=== PATIENT | male | born 1950 | race Caucasian/White ===

== ENCOUNTER → 2019-07-29 | Outpatient (CLI) | payer MEDICARE ==
[~2019-07-29] MED LIST: REGADENOSON 0.4 MG/5 ML DISP.SYRIN. IV ONE
--- NOTE | 2019-07-30 12:37 | PCVCIMAG ---
APPROVED REPORT Study performed: 07/29/2019 08:12:43 EXAM: Comprehensive 2D, Doppler, and color-flow Echocardiogram Patient Location: Echo lab Status: routine BSA: 1.83 HR: 67 bpmBP: 124/82 mmHg Rhythm: NSR Other Information Study Quality: Adequate Risk Factors: Cardiac Risk Factors: Hyperlipidemia Indications CAD elevated calcium score 2D Dimensions IVSd: 15.17 (7-11mm) LVDd: 38.64 mm PWd: 15.00 (7-11mm)Ascending Ao: 35.39 (22-36mm) LVDs: 30.91 (25-40mm) Left Atrium: 34.07 (27-40mm) Aortic Root: 33.23 mm LV Single Plane 4CH: 61.83 % LV Single Plane 2CH: 68.09 % Biplane EF: 65.0 % Volumes Left Atrial Volume (Systole) Single Plane 4CH: 34.62 mLSingle Plane 2CH: 58.86 mL LA ESV Index: 25.00 mL/m2 Aortic Valve AoV Peak Waldo.: 1.67 m/s AO Peak Gr.: 11.22 mmHgLVOT Max P.27 mmHg LVOT Max V: 1.03 m/s Mitral Valve E/A Ratio: 0.6 MV Decel. Time: 299.55 ms MV E Max Waldo.: 0.62 m/s MV A Waldo.: 0.99 m/s IVRT: 138.41 ms Pulmonary Valve PV Peak Waldo.: 1.14 m/sPV Peak Gr.: 5.23 mmHg Pulmonary Vein P Vein S: 0.40 m/sP Vein A: 0.52 m/s P Vein D: 0.59 m/sP Vein A Dur.: 128.0 msec P Vein S/D Ratio: 0.68 Tricuspid Valve TR Peak Waldo.: 3.08 m/s TR Peak Gr.: 37.91 mmHg TV Vmax: 0.53 m/s Left Ventricle The left ventricle is normal size. There is normal LV segmental wall motion. Moderate concentric left ventricular hypertrophy. Left ventricular systolic function is normal. The left ventricular ejection fraction is within the normal range. LVEF is 60%. Grade I - abnormal relaxation pattern. Right Ventricle The right ventricle is normal size. The right ventricular systolic function is normal. Atria The left atrium size is normal. The right atrium size is normal. Aortic Valve The aortic valve is normal in structure. No aortic regurgitation is present. There is no aortic valvular stenosis. Mitral Valve The mitral valve is normal in structure. Mild mitral regurgitation. No evidence of mitral valve stenosis. Tricuspid Valve The tricuspid valve is normal in structure. Mild tricuspid regurgitation with PAP of 45 mmHg. Pulmonic Valve The pulmonary valve is normal in structure. There is mild pulmonic valvular regurgitation. Great Vessels The aortic root is normal in size. IVC is normal in size and collapses >50% with inspiration. Pericardium There is no pericardial effusion. There is no pleural effusion. <Conclusion> The left ventricle is normal size. LVEF is 60%. The aortic valve is normal in structure. The mitral valve is normal in structure. Mild mitral regurgitation. The tricuspid valve is normal in structure. Mild tricuspid regurgitation with PAP of 45 mmHg. The pulmonary valve is normal in structure. There is no pericardial effusion.
--- NOTE | 2019-08-01 12:32 | PCVCIMAG ---
APPROVED REPORT Imaging Protocol: Rest Tc-99m/Stress Tc-99m 1 day Study performed: 07/29/2019 08:54:50 Indication: Dyspnea, CAD, High Ca Score Patient Location: Out-Patient Stress Nurse: Janie Vaz RN, Rosalee Jeong RN AL Tech:Katie ZACH BonillaMT Ht: 5 ft 4 in Wt: 170 lbs BSA: 1.83 m2 HR: 66 bpm BP: 168/80 mmHg BMI: 29.1 Rhythm: Normal Sinus Rhythm with Inferior Q waves Medical History Medical History: Hyperlipidemia Medications: Propranolol, Crestor Allergies: No known drug allergies Cardiac Risk Factors: Age Pretest Chest Pain Characteristics: No chest pain Resting Data Rest SPECT myocardial perfusion imaging was performed in supine position 45 minutes following the intravenous injection of 10.6 mCi of Tc-99m Sestamibi. Time of rest injection: 0845 Date: 07/29/2019 Administration Route: IV Administration Site: Right AC Pharmacologic Stress Pharmacologic stress test was performed by injecting Regadenoson 0.4 mg IV push over 10-15 seconds immediately followed by the intravenous injection of 32.1 mCi of Tc-99m Sestamibi. Time of stress injection: 1000 Date: 07/29/2019 Administration Route: IV Administration Site: Right AC Gated Stress SPECT was performed 45 minutes after stress injection. The images were gated to evaluate regional wall motion and calculate left ventricular ejection fraction. Stress Test Details Stress Test: Pharmacologic stress testing performed using 0.4 mg of regadenoson per 5 mL given IV over 10 seconds. Reason for pharmacologic stress test: physical limitation. HRMax Heart Rate (APMHR): 151 bpm Resting HR: 66 bpmTarget HR (85% APMHR): 128 bpm Max HR Achieved: 108 bpm % of APMHR: 71 Recovery HR: 97 bpm BP Resting BP: 168/80 mmHg Max BP: 151/85 mmHg Recovery BP: 160/96 mmHg ECG Resting ECG: Normal Sinus Rhythm with Inferior Q waves Stress ECG: Normal Sinus Tachycardia with Inferior Q waves Arrhythmia: PVC's Recovery ECG: Normal Sinus Rhythm with Inferior Q waves Clinical Reason for Termination: Completed protocol Stress Symptoms: Chest pressure, Dyspnea Symptoms resolved with caffeine. Stress ECG Conclusion 1. Adequate response to intravenous Lexiscan 2. Inadequate heart rate for ECG diagnosis Study Data Post stress, the left ventricular ejection was 70%.. SSS: 4 SRS: 3 SDS: 1 TID = 1.05. Perfusion There is a large area of moderately reduced uptake in the entire segment of the inferior wall which is seen on the stress images as well as the resting images. This area thickens and moves normally and is most consistent with attenuation artifact. Wall Motion Normal left ventricular wall motion. Nuclear Conclusion ECG Findings: non-ischemic Clinical Findings: negative for ischemia Nuclear Findings: negative for ischemia Exercise Capacity: not assessed Left Ventricular Function: normal 1. Low risk study based on the absence of inducible ischemia although there was inferoapical photopenia considered to be attenuation artifact 2. Post exercise left ventricular ejection fraction 70% with normal contractility Interpreted by: Fred Pascual MD Electronically Approved: 08/01/2019 12:32:33 <Conclusion> 1. Adequate response to intravenous Lexiscan 2. Inadequate heart rate for ECG diagnosis
== END | disposition home or self-care (01) ==
LOC: PCVCIMAG 09:19
PROVIDERS: ATTEND Internal Medicine
DX: I08.1 Rheumatic disorders of both mitral and tricuspid valves (principal); I25.10 Atherosclerotic heart disease of native coronary artery without angina pectoris; E78.2 Mixed hyperlipidemia
CPT/HCPCS: 78452; 93017; 93306; A9500; J2785